=== PATIENT | female | born 1995 | race Caucasian/White ===

== ENCOUNTER 2019-12-31 12:21 | Emergency (ER) | payer OTHER ==
[2019-12-31 12:30] VITALS: BP 109/64; PULSE 78; TEMP 98.9; BMI 23.3
--- NOTE | 2019-12-31 12:32 | PDOC ---
Rapid Medical Evaluation Time Seen by Provider: 12/31/19 12:25 Medical Evaluation: 12/31/19 12:26 Pt presents for evaluation of lower abdominal pain starting this morning. Admits to weakness, nausea/vomiting and diarrhea. States had an IUD placed in June. Notes that her cycles have been irregular and just finished a 2 month menstrual cycle. Denies dysuria, vaginal discharge, back pain and fever. Exam: NAD, suprapubic discomfort Orders: labs, IV Pt to proceed to the ER for further evaluation Discharge Disposition - Diagnosis Abdominal pain Qualifiers: Abdominal location: lower abdomen, unspecified Qualified Code(s): R10.30 - Lower abdominal pain, unspecified - Referrals - Patient Instructions - Post Discharge Activity
[2019-12-31 13:12] LABS: BASO % 0.9 % (0-2.0); EOS % 2.3 % (0-4.5); HEMATOCRIT 38.7 % (32.4-45.2); HEMOGLOBIN 12.7 GM/dL (10.7-15.3); LYMPH % 29.6 % (8-40); MCH 30.8 pg (25.7-33.7); MCHC 32.8 g/dl (32.0-36.0); MEAN CELL VOLUME 93.9 fl (80-96); NEUT % 59.2 % (42.8-82.8); PLATELET COUNT 189 K/MM3 (134-434); RBC 4.12 M/mm3 (3.60-5.2); RDW 13.2 % (11.6-15.6); WHITE BLOOD COUNT 4.4 K/mm3 (4.0-10.0)
[2019-12-31 13:19] LABS: INR 1.04 (0.83-1.09); PROTHROMBIN TIME (PATIENT) 12.3 SEC (9.7-13.0)
--- NOTE | 2019-12-31 13:26 | PDOC ---
History of Present Illness - General Chief Complaint: Pain Stated Complaint: ABD PAIN Time Seen by Provider: 12/31/19 12:25 History Source: Patient Exam Limitations: No Limitations - History of Present Illness Initial Comments: 01/01/20 13:33 24 yo F with a hx of copper IUD placed in Jul 2019 presents to the emergency department with onset of lower abdominal pain that occurred this morning. Per the patient, after she awoke, she experienced bilateral lower abdominal pain consistent with menstrual cramps in quality, but more severe (8/10 initially). Denies radiation and denies relieving and aggravating factors. Currently, the patient does not have abdominal pain as it resolved prior to ED presentation. Denies the following: vaginal discharge, vaginal bleeding, fevers, chills, nausea, vomiting, dysuria, hematuria, increased urinary frequency, diarrhea, heamtochezia, and constipation. Allergies: NKDA Past History - Medical History Allergies/Adverse Reactions: Allergies Allergy/AdvReac Type Severity Reaction Status Date / Time No Known Allergies Allergy Verified 01/02/20 12:17 Home Medications: Ambulatory Orders Doxycycline Hyclate 100 mg PO BID #28 capsule 12/31/19 Metronidazole 500 mg PO BID #28 tablet 12/31/19 COPD: No - Psycho-Social/Smoking History Smoking History: Never smoked Review of Systems - Review of Systems Able to Perform ROS?: Yes Is the patient limited Zambian proficient: No Constitutional: No: Chills, Diaphoresis, Fever, Weakness HEENTM: No: Eye Pain, Ear Pain, Nose Pain, Throat Pain Respiratory: No: Cough, Shortness of Breath Cardiac (ROS): No: Chest Pain, Lightheadedness ABD/GI: Yes: Abdominal cramping. No: Constipated, Diarrhea, Nausea, Rectal Bleeding, Vomiting, Tarry Stools : No: Dysuria, Hematuria Musculoskeletal: No: Back Pain, Joint Pain, Neck Pain Integumentary: No: Bruising, Rash Neurological: No: Headache Psychiatric: No: Change in Appetite Endocrine: No: Unexplained Weight Loss Hematologic/Lymphatic: No: Anemia *Physical Exam - Vital Signs Last Vital Signs Temp Pulse Resp BP Pulse Ox 98.9 F 78 18 109/64 99 12/31/19 12:28 12/31/19 12:28 12/31/19 12:28 12/31/19 12:12/31/19 12:28 - Physical Exam General Appearance: Yes: Nourished, Appropriately Dressed. No: Apparent Distress, Intoxicated HEENT: positive: EOMI, GLENN, Normal Voice, Symmetrical, Pharynx Normal Neck: positive: Trachea midline, Supple. negative: Tender, Lymphadenopathy (R), Lymphadenopathy (L) Respiratory/Chest: positive: Lungs Clear, Normal Breath Sounds. negative: Chest Tender, Respiratory Distress, Accessory Muscle Use Cardiovascular: positive: Regular Rhythm, Regular Rate, S1, S2. negative: Systolic Murmur Female Pelvic Exam: positive: normal external exam, cervical os closed, normal adnexa, normal size ovaries, discharge (from the cervix (greenish thin discharge)), other (friable tissue at the 12'oclock position that bled with q- tip palpation). negative: CMT, adnexal tenderness Gastrointestinal/Abdominal: positive: Normal Bowel Sounds, Flat, Soft. negative: Tender, Distended, Guarding, Rebound Lymphatic: negative: Adenopathy Musculoskeletal: positive: Normal Inspection. negative: CVA Tenderness, Vertebral Tenderness Extremity: positive: Normal Capillary Refill, Normal Inspection, Normal Range of Motion. negative: Tender Integumentary: positive: Normal Color, Dry, Warm Neurologic: positive: Fully Oriented, Alert, Normal Mood/Affect ED Treatment Course - LABORATORY CBC & Chemistry Diagram: 12/31/19 12:50 12/31/19 12:47 - ADDITIONAL ORDERS Additional order review: Laboratory Results 12/31/19 12:50 PT with INR 12.30 INR 1.04 Medical Decision Making - Medical Decision Making 24 yo F with no pmhx presents with bilateral lower abdominal pain now resolved with a hx of iUD placement in Jul 2019. The patient states she had had one sexual partner in the last 6 months and endorses a hx of gonorrhea that was treated "years" ago. The patient denies fever. Initial vitals: Initial Vital Signs Temp Pulse Resp BP Pulse Ox 98.9 F 78 18 109/64 99 12/31/19 12:28 12/31/19 12:28 12/31/19 12:28 12/31/19 12:12/31/19 12:28 Work up: ddx: UTI vs nephrolithiasis vs gastroenteritis vs IUD misplacement vs cervicitis vs PID Laboratory Tests 12/31/19 12/31/19 12/31/19 12:47 12:50 12:50 WBC 4.4 RBC 4.12 Hgb 12.7 Hct 38.7 MCV 93.9 MCH 30.8 MCHC 32.8 RDW 13.2 Plt Count 189 MPV 10.0 Absolute Neuts (auto) 2.6 Neutrophils % 59.2 Lymphocytes % 29.6 Monocytes % 8.0 Eosinophils % 2.3 Basophils % 0.9 Nucleated RBC % 0 PT with INR 12.30 INR 1.04 Sodium 141 Potassium 3.9 Chloride 109 H Carbon Dioxide 26 Anion Gap 5 L BUN 10.7 Creatinine 0.8 Est GFR (CKD-EPI)AfAm 121.29 Est GFR (CKD-EPI)NonAf 104.65 Random Glucose 94 Calcium 9.2 Total Bilirubin 0.6 AST 17 ALT 20 Alkaline Phosphatase 57 Total Protein 7.2 Albumin 4.3 Urine Color Urine Appearance Urine pH Ur Specific [place] Urine Protein Urine Glucose (UA) Urine Ketones Urine Blood Urine Nitrite Urine Bilirubin Urine Urobilinogen Ur Leukocyte Esterase Urine HCG, Qual C. trachomatis (JAIDA) N. gonorrhoeae (JAIDA) Blood Type Antibody Screen 12/31/19 12/31/19 12/31/19 12:50 13:00 15:30 WBC RBC Hgb Hct MCV MCH MCHC RDW Plt Count MPV Absolute Neuts (auto) Neutrophils % Lymphocytes % Monocytes % Eosinophils % Basophils % Nucleated RBC % PT with INR INR Sodium Potassium Chloride Carbon Dioxide Anion Gap BUN Creatinine Est GFR (CKD-EPI)AfAm Est GFR (CKD-EPI)NonAf Random Glucose Calcium Total Bilirubin AST ALT Alkaline Phosphatase Total Protein Albumin Urine Color Yellow Urine Appearance Clear Urine pH 7.0 Ur Specific [place] 1.015 Urine Protein Negative Urine Glucose (UA) Negative Urine Ketones Negative Urine Blood 1+ H Urine Nitrite Negative Urine Bilirubin Negative Urine Urobilinogen 0.2 Ur Leukocyte Esterase Negative Urine HCG, Qual Negative C. trachomatis (JAIDA) Negative N. gonorrhoeae (JAIDA) Negative Blood Type A POSITIVE Antibody Screen Negative UA is negative for acute pathologies Patient has no leukocytosis noted TVUS was ordered that shows a lower IUD placement. No pathologies noted in the ovaries I explained to the patient my concern for cervicitis likely caused by trich vs gonorrhea vs chlamydia. I recommended to the patient to have treatment and for her sexual partner(s) to present themselves to their pMD or urgent care or the eD within 72 hours to have abx treatment as well. The patient understood this recommendation. Patient was given tylenol for onset of mild pain that resolved with treatment. The patient has a negative urine hcg. The patient to be discharged. A referral was recommended to her for Dr. Hernandes and a call was placed to his service for call back. Discharge - Discharge Information Problems reviewed: Yes Clinical Impression/Diagnosis: PID (acute pelvic inflammatory disease) Abdominal pain Qualifiers: Abdominal location: lower abdomen, unspecified Qualified Code(s): R10.30 - Lower abdominal pain, unspecified Disposition: HOME - Admission No - Additional Discharge Information Prescriptions: Doxycycline Hyclate 100 mg PO BID #28 capsule Metronidazole 500 mg PO BID #28 tablet - Follow up/Referral Referrals: Moncho Chaidez MD [Primary Care Provider] - Hiren Hernandes MD [Staff Physician] - - Patient Discharge Instructions Patient Printed Discharge Instructions: DI for Pelvic Inflammatory Disease Additional Instructions: You were seen in the emergency department for the evaluation of your abdominal pain, You likely have an infection. Please take the medications as prescribed. Please return to the emergency department if you have worsening symptoms or new concerning symptoms. Please see Dr. Hernandes within 72 hours after discharge. Thank you. - Post Discharge Activity
--- NOTE | 2019-12-31 13:29 | PDOC ---
Attending Attestation - Resident Resident Name: Elio Garza - HPI HPI: 12/31/19 15:01 Pt presents to the ED complaining of pelvic pain that began this AM. Denies fever, nausea or vomiting. Denies vaginal discharge. Patient had copper IUD placed in July, and has experienced persistent vaginal spotting since then. Remote history of STD. - Physicial Exam PE: 12/31/19 15:05 Agree with resident exam. Patient is alert and oriented and in no acute distress. Abdomen soft, non tender, non distended without guarding or rebound. - Medical Decision Making 12/31/19 15:06 Pt presents to the ED complaining of pelvic pain. Initial differential included ectopic , UTI, PID. U preg is negative. UA is normal. WIll check pelvic exam, check GC, reassess. 12/31/19 15:09 Discharge - Discharge Information Problems reviewed: Yes Clinical Impression/Diagnosis: PID (acute pelvic inflammatory disease) Abdominal pain Qualifiers: Abdominal location: lower abdomen, unspecified Qualified Code(s): R10.30 - Lower abdominal pain, unspecified Disposition: HOME - Additional Discharge Information Prescriptions: Doxycycline Hyclate 100 mg PO BID #28 capsule Metronidazole 500 mg PO BID #28 tablet - Follow up/Referral Referrals: Moncho Chaidez MD [Primary Care Provider] - Hiren Hernandes MD [Staff Physician] - - Patient Discharge Instructions Patient Printed Discharge Instructions: DI for Pelvic Inflammatory Disease Additional Instructions: You were seen in the emergency department for the evaluation of your abdominal pain, You likely have an infection. Please take the medications as prescribed. Please return to the emergency department if you have worsening symptoms or new concerning symptoms. Please see Dr. Hernandes within 72 hours after discharge. Thank you. - Post Discharge Activity
[2019-12-31 13:31] LABS: URINE APPEARANCE Clear; URINE BILIRUBIN Negative (NEGATIVE); URINE COLOR Yellow; URINE GLUCOSE (UA) Negative (NEGATIVE); URINE KETONE Negative (NEGATIVE); URINE LEUK ESTERASE Negative (NEGATIVE); URINE NITRITE Negative (NEGATIVE); URINE PROTEIN Negative (NEGATIVE); URINE UROBILINOGEN 0.2 mg/dL (0.2-1.0)
[2019-12-31 13:37] LABS: ALBUMIN 4.3 g/dl (3.4-5.0); BILIRUBIN,TOTAL 0.6 mg/dL (0.2-1); BLOOD UREA NITROGEN 10.7 mg/dL (7-18); CALCIUM 9.2 mg/dL (8.5-10.1); CREATININE 0.8 mg/dL (0.55-1.3); POTASSIUM 3.9 mmol/L (3.5-5.1); TOT PROT 7.2 g/dl (6.4-8.2)
[2019-12-31 13:42] LABS: HCG,QUALITATIVE URINE Negative
[2019-12-31] MEDS ORDERED: ACETAMINOPHEN 325 MG TABLET (FP) PO ONE (14:00)
[2019-12-31] MEDS ORDERED: metroNIDAZOLE 250 MG TABLET PO ONE (15:20)
[2019-12-31] MEDS ORDERED: DOXYCYCLINE HYCLATE 100 MG CAPSULE PO ONE ×2 (15:20→15:30)
[2019-12-31] MEDS ORDERED: metroNIDAZOLE 250 MG TABLET ONE (15:30)
[2019-12-31] MEDS ORDERED: cefTRIAXone SODIUM 1 GM VIAL ONE (15:30)
[2019-12-31] MEDS ORDERED: ACETAMINOPHEN 325 MG TABLET (FP) ONE (15:30)
== END 2019-12-31 16:12 | disposition home or self-care (01) ==
LOC: JER 12:21
DX: R10.30 Lower abdominal pain, unspecified (principal)
CPT/HCPCS: 36415; 76830-TC; 80053; 81003; 84703; 85025; 85610; 86850; 86900; 86901; 87086; 87491; 87591; 96372; 99285-25

== ENCOUNTER 2020-01-02 12:12 | Emergency (ER) | payer OTHER ==
[2020-01-02 12:20] VITALS: BP 104/48; PULSE 79; TEMP 98.6; BMI 24.1
[2020-01-02] MEDS ORDERED: ONDANSETRON 4 MG/2 ML VIAL IVPUSH ONE (12:21)
[2020-01-02] MEDS ORDERED: SODIUM CHLORIDE 1,000 ML IV STA (12:21)
--- NOTE | 2020-01-02 12:22 | PDOC ---
Rapid Medical Evaluation Chief Complaint: Nausea/Vomiting Time Seen by Provider: 01/02/20 12:18 Medical Evaluation: Allergies Allergy/AdvReac Type Severity Reaction Status Date / Time No Known Allergies Allergy Verified 01/02/20 12:17 Vital Signs Temp Pulse Resp BP Pulse Ox 98.6 F 79 18 104/48 L 100 01/02/20 12:17 01/02/20 12:17 01/02/20 12:17 01/02/20 12:17 01/02/20 12:17 01/02/20 12:21 CC: n/v/d since starting abx, seen here recently and prescribed , no fever Exam: vss, midsuprapubic tenderness plan: labs, urine, ivf, zofran Discharge Disposition - Diagnosis Nausea and vomiting - Referrals Referrals: Moncho Chaidez MD [Primary Care Provider] - - Patient Instructions - Post Discharge Activity
--- NOTE | 2020-01-02 12:54 | PDOC ---
History of Present Illness - General Chief Complaint: Nausea/Vomiting Stated Complaint: Weakness Time Seen by Provider: 01/02/20 12:18 - History of Present Illness Initial Comments: 01/02/20 12:48 24-year-old female presents for evaluation of painful IUD.Seen a few days ago her appointment for [facility] follow-up is not for about 3 weeks from now. She would like it removed today. Past History - Medical History Allergies/Adverse Reactions: Allergies Allergy/AdvReac Type Severity Reaction Status Date / Time No Known Allergies Allergy Verified 01/02/20 12:17 Home Medications: Ambulatory Orders Doxycycline Hyclate 100 mg PO BID #28 capsule 12/31/19 Metronidazole 500 mg PO BID #28 tablet 12/31/19 COPD: No - Psycho-Social/Smoking History Smoking History: Never smoked Have you smoked in the past 12 months: No - Substance Abuse Hx (Audit-C & DAST Scrn) How often the patient has a drink containing alcohol: Never Score: In Men: 4 or > Positive; In Women: 3 or > Positive: 0 Screen Result (Pos requires Nsg. Audit-10AR): Negative In the last yr the pt used illegal drug/Rx for NonMed reason: No Score: Yes response is considered Positive: 0 Screen Result (Positive result requires Nsg. DAST-10): Negative Review of Systems - Review of Systems Constitutional: No: Fever : No: Discharge, Incontinence *Physical Exam - Vital Signs Last Vital Signs Temp Pulse Resp BP Pulse Ox 98.6 F 79 18 104/48 L 100 01/02/20 12:17 01/02/20 12:17 01/02/20 12:17 01/02/20 12:17 01/02/20 12:17 - Physical Exam General Appearance: Yes: Nourished, Appropriately Dressed. No: Apparent Distress HEENT: positive: Symmetrical Neck: positive: Supple Respiratory/Chest: negative: Respiratory Distress Musculoskeletal: positive: Normal Inspection Extremity: positive: Normal Inspection Integumentary: positive: Normal Color Neurologic: positive: gateman II-XII NML intact, Fully Oriented Medical Decision Making - Medical Decision Making 01/02/20 12:55 BUSINESS COORDINATOR called, patient will follow-up today for IUD removal. We like the equipment and the experience in the emergency room to remove this device. Discharge - Discharge Information Problems reviewed: Yes Clinical Impression/Diagnosis: Pain due to intrauterine contraceptive device (IUD) Clinical Impression/Diagnosis: (Ruled Out): Nausea and vomiting Condition: Stable Disposition: HOME - Admission No - Follow up/Referral Referrals: Moncho Chaidez MD [Primary Care Provider] - Antonio Martinez MD [Staff Physician] - - Patient Discharge Instructions Additional Instructions: Without fail follow-up with the [facility] second-floor BUSINESS COORDINATOR office for Dr. Martinez for IUD removal when leaving this hospital today you have an appointment that I have made for you. - Post Discharge Activity
== END 2020-01-02 13:10 | disposition home or self-care (01) ==
LOC: JER 12:12
PROC: 3E033NZ Introduction of Analgesics, Hypnotics, Sedatives into Peripheral Vein, Percutaneous Approach (ICD-10-PCS; principal; 2020-01-02)
PROC: 3E033GC Introduction of Other Therapeutic Substance into Peripheral Vein, Percutaneous Approach (ICD-10-PCS; 2020-01-02)
DX: R10.2 Pelvic and perineal pain (principal); R11.2 Nausea with vomiting, unspecified
CPT/HCPCS: 96361; 96374; 99284-25